=== PATIENT | male | born 1960 | race African-American/Black ===

== ENCOUNTER 2017-05-14 07:50 | Emergency (ER) | payer OTHER ==
[~2017-05-14] VITALS: Ht 177.8 cm; Wt 113.4 kg
[2017-05-14] MEDS ORDERED: [UNRECOGNIZED DRUG - REMARK] (08:22)
[2017-05-14] MEDS ORDERED: [UNRECOGNIZED DRUG - REMARK] (08:22)
[2017-05-14] MEDS ORDERED: [UNRECOGNIZED DRUG - REMARK] (08:22)
[2017-05-14] MEDS ORDERED: [UNRECOGNIZED DRUG - REMARK] (08:22)
== END 2017-05-14 09:27 | disposition home or self-care (01) ==
LOC: ER 07:50
DX: M79.651 Pain in right thigh (principal); I10 Essential (primary) hypertension; E78.00 Pure hypercholesterolemia, unspecified; Z88.2 Allergy status to sulfonamides; Z79.899 Other long term (current) drug therapy
CPT/HCPCS: A4663

== ENCOUNTER 2017-05-18 10:22 | Emergency (ER) | payer OTHER ==
[~2017-05-18] VITALS: Ht 180.3 cm; Wt 56.7 kg
[~2017-05-18 10:22] MED LIST: [UNRECOGNIZED DRUG - REMARK]; [UNRECOGNIZED DRUG - REMARK]; [UNRECOGNIZED DRUG - REMARK]; [UNRECOGNIZED DRUG - REMARK]
[2017-05-18] MEDS ORDERED: IV NORMAL SALINE 1000 ML BAG IV ONE (10:30)
[2017-05-18] MEDS ORDERED: IV NORMAL SALINE 100 ML ONE (10:40)
[2017-05-18] MEDS ORDERED: IOHEXOL 300MG/ML 100 ML INFUS..BTL ONE (10:40)
[2017-05-18 10:54] LABS: BASOPHILS % (AUTO) 0.7 % (0.0-2.0); EOSINOPHILS # (AUTO) 0.4 K/uL (0.0-0.7); HEMATOCRIT 42.8 % (36.7-47.1); HEMOGLOBIN 14.4 g/dL (12.5-16.3); LYMPHOCYTES # (AUTO) 1.7 K/uL (20.0-40.0); LYMPHOCYTES % (AUTO) 22.7 % (20.5-51.5); MEAN CORPUSCULAR HGB CONC 34 g/dL (32.5-36.3); MEAN CORPUSCULAR VOLUME 95.3 fL (73.0-96.2); MONOCYTES # (AUTO) 0.6 K/uL (2.0-10.0); MONOCYTES % (AUTO) 7.5 % (0.0-11.0); NEUTROPHILS # (AUTO) 4.7 K/uL (1.8-8.9); NEUTROPHILS % (AUTO) 64.1 % (38.5-71.5); PLATELET COUNT (AUTO) 269 K/uL (152-348); RED BLOOD CELL COUNT(AUTO) 4.49 MIL/uL (4.06-5.63); WHITE BLOOD COUNT (AUTO) 7.4 K/uL (3.6-10.2)
[2017-05-18 11:01] LABS: POTASSIUM 4.1 mmol/L (3.5-5.1)
[2017-05-18 11:07] LABS: BILIRUBIN,DIRECT 0.1 mg/dL (0.0-0.2); BILIRUBIN,TOTAL 0.4 mg/dL (0.2-1.0); TOTAL PROTEIN, SERUM 7.9 g/dL (6.4-8.2)
--- NOTE | 2017-05-18 11:47 | NUR ---
PATIENT WAS SEEN BY DR ROBERTS. CT DONE. LABS PENDING. PATIENT IS AWAKE AND ALERT IN NO DISTRESS.
--- NOTE | 2017-05-18 12:07 | NUR ---
PATIENT AMBULATED TO BATHROOM WITH STEADY GAIT AND WAS ABLE TO VOID URINE. SPECIMEN SENT TO LAB.
[2017-05-18 12:17] LABS: *BILIRUBIN,URIN NEGATIVE (NEGATIVE); *BLOOD, URINE Trace-intact (NEGATIVE); *CLARITY,URINE CLEAR (CLEAR); *COLOR,URINE YELLOW (YELLOW); *KETONES,URINE NEGATIVE (NEGATIVE); *PROTEIN,URINE NEGATIVE (NEGATIVE); *UROBILINOGEN,URINE 0.2 E.U./dl (NORMAL); LEUKOCYTE ESTERASE ,URINE NEGATIVE (NEGATIVE); NITRITE, URINE NEGATIVE (NEGATIVE); UGLUCOSE NEGATIVE (NEGATIVE)
[2017-05-18 12:28] LABS: BACTERIA,URINE FEW /HPF (NONE SEEN); RBC,URINE 0-3 /HPF (0-3); SQUAMOUS EPITHELIAL CELL,UR FEW /HPF (NONE SEEN); WBC,URINE 0-3 /HPF (0-3)
--- NOTE | 2017-05-18 12:47 | NUR ---
COPIES OF ALL LABS AND CT SCAN GIVEN TO PATIENT. NAMES OF PAIN MGMT DOCTORS GIVEN TO PATIENT BY MD. DC, RX AND FOLLOW UP INSTRUCTIONS GIVEN AND EXPLAINED TO PATIENT WHO STATES HE UNDERSTANDS ALL INSTRUCTIONS.
--- NOTE | 2017-05-18 13:09 | NUR ---
DC, RX AND FOLLOW UP INSTRUCTIONS GIVEN AND EXPLAINED TO PATIENT WHO STATES HE UNDERSTANDS ALL INSTRUCTIONS.
--- NOTE | 2017-05-18 13:09 | NUR ---
IV removed. Catheter intact and site benign. Pressure and 4x4 gauze applied to site. No bleeding noted.
[2017-05-18 13:29] VITALS: BP 125/81
== END 2017-05-18 13:30 | disposition home or self-care (01) ==
LOC: ER 10:22
DX: M54.30 Sciatica, unspecified side (principal); I10 Essential (primary) hypertension; E78.00 Pure hypercholesterolemia, unspecified; Z88.2 Allergy status to sulfonamides; Z79.899 Other long term (current) drug therapy
CPT/HCPCS: 36415; 85025; A4663; J3490; J7030; Q9967

== ENCOUNTER 2017-12-25 07:56 | Inpatient (IN) | payer OTHER ==
[~2017-12-25] VITALS: Ht 180.3 cm; Wt 99.8 kg
[2017-12-25] MEDS ORDERED: ASPIRIN 325 MG TABLET PO ONE (08:15)
[2017-12-25] MEDS ORDERED: LOSA100T15 PO (08:17)
[2017-12-25] MEDS ORDERED: ATOR40TA PO (08:17)
[2017-12-25] MEDS ORDERED: CARV25TA PO (08:17)
[2017-12-25] MEDS ORDERED: AMLO10TA4 PO ×2 (08:17→16:31)
[2017-12-25] MEDS ORDERED: ASPIRIN 325 MG TABLET ONE (08:29)
[2017-12-25 08:31] LABS: BASOPHILS # (AUTO) 0.1 K/uL (0.0-8.0); BASOPHILS % (AUTO) 1.5 % (0.0-2.0); EOSINOPHILS # (AUTO) 0.3 K/uL (0.0-0.7); EOSINOPHILS % (AUTO) 4.3 % (0.0-7.0); HEMATOCRIT 38.6 % (36.7-47.1); HEMOGLOBIN 13.4 g/dL (12.5-16.3); LYMPHOCYTES % (AUTO) 29.4 % (20.5-51.5); MEAN CORPUSCULAR HEMOGLOBIN 32.6 uug (23.8-33.4); MEAN CORPUSCULAR HGB CONC 35 g/dL (32.5-36.3); MEAN CORPUSCULAR VOLUME 93.6 fL (73.0-96.2); MONOCYTES # (AUTO) 0.5 K/uL (2.0-10.0); MONOCYTES % (AUTO) 8.1 % (0.0-11.0); NEUTROPHILS # (AUTO) 3.8 K/uL (1.8-8.9); NEUTROPHILS % (AUTO) 56.7 % (38.5-71.5); PLATELET COUNT (AUTO) 241 K/uL (152-348); RED BLOOD CELL COUNT(AUTO) 4.13 MIL/uL (4.06-5.63); WHITE BLOOD COUNT (AUTO) 6.7 K/uL (3.6-10.2)
[2017-12-25 08:38] LABS: POTASSIUM 4.2 mmol/L (3.5-5.1)
[2017-12-25 08:51] LABS: BILIRUBIN,DIRECT 0.1 mg/dL (0.0-0.2); BILIRUBIN,TOTAL 0.4 mg/dL (0.2-1.0); TOTAL PROTEIN, SERUM 7.8 g/dL (6.4-8.2)
[2017-12-25 10:55] VITALS: BP 152/81
[2017-12-25] MEDS ORDERED: HYDROCODONE/APAP 5-325MG TABLET PO PRN (12:30)
[2017-12-25] MEDS ORDERED: NITROGLYCERIN 0.4 MG/TAB BOTTLE SL PRN (12:30)
[2017-12-25] MEDS ORDERED: ACETAMINOPHEN 325 MG TABLET PO PRN (12:30)
[2017-12-25] MEDS ORDERED: MAGNESIUM HYDROXIDE 30 ML LIQUID UDC PO PRN (12:30)
[2017-12-25] MEDS ORDERED: ZOLPIDEM 5 MG TABLET PO PRN (12:30)
[2017-12-25] MEDS ORDERED: ONDANSETRON 4 MG/2 ML VIAL IV PRN (12:30)
[2017-12-25] MEDS ORDERED: hydrALAZINE HCL 25 MG TABLET PO PRN (12:45)
[2017-12-25 15:06] VITALS: BP 120/71
[2017-12-25] MEDS ORDERED: ASPI81TA31 PO (16:31)
[2017-12-25] MEDS ORDERED: CARVEDILOL 25 MG TABLET PO SCH (18:00)
[2017-12-25] MEDS ORDERED: ATORVASTATIN 40 MG TABLET PO SCH (21:00)
[2017-12-26] MEDS ORDERED: PANTOPRAZOLE SODIUM 40 MG TABLET.DR PO SCH (07:00)
[2017-12-26] MEDS ORDERED: Medication Not On Formulary EA (Losartan Potassium 1 TAB) PO SCH (09:00)
[2017-12-26] MEDS ORDERED: LOSARTAN POTASSIUM 50 MG TABLET PO SCH (09:00)
== END 2017-12-25 17:40 | disposition home or self-care (01) | DRG 203 ==
LOC: ER 07:56 → TELE 10:35
PROVIDERS: ADMIT Internal Medicine; ATTEND Internal Medicine
DX: M94.0 Chondrocostal junction syndrome [Tietze] (principal); E66.8 Other obesity; E78.5 Hyperlipidemia, unspecified; R00.1 Bradycardia, unspecified; T44.7X5A Adverse effect of beta-adrenoreceptor antagonists, initial encounter; Y92.039 Unspecified place in apartment as the place of occurrence of the external cause; Z68.30 Body mass index [BMI] 30.0-30.9, adult; Z71.3 Dietary counseling and surveillance; I10 Essential (primary) hypertension; Z88.2 Allergy status to sulfonamides; Z79.899 Other long term (current) drug therapy
CPT/HCPCS: 36415; 70030-TC; 71045; 85025; 85730; 93005; A4663

== ENCOUNTER 2019-05-12 09:05 | Emergency (ER) | payer OTHER ==
[~2019-05-12] VITALS: Ht 180.3 cm; Wt 102.1 kg
--- NOTE | 2019-05-12 09:46 | NUR ---
DR Amador at the bedside for MSE.
[2019-05-12 11:04] VITALS: BP 155/92
--- NOTE | 2019-05-12 11:04 | NUR ---
Patient discharged to home in stable conditon. Written and verbal after care instructions given. Patient verbalizes understanding of instructions.
== END 2019-05-12 11:07 | disposition home or self-care (01) ==
LOC: ER 09:05
DX: M79.604 Pain in right leg (principal); M79.18 Myalgia, other site; Z88.2 Allergy status to sulfonamides; Z79.82 Long term (current) use of aspirin; Z79.899 Other long term (current) drug therapy; Z60.2 Problems related to living alone
CPT/HCPCS: 73502; 73551; A4663